=== PATIENT | female | born 1995 | race Caucasian/White ===

== ENCOUNTER 2017-01-02 16:50 | Emergency (ER) | END 2017-01-02 21:03 | disposition home or self-care (01) | DX: J02.9 Acute pharyngitis, unspecified (principal); J45.909 Unspecified asthma, uncomplicated; R51 Headache; R11.2 Nausea with vomiting, unspecified; R19.7 Diarrhea, unspecified | CPT/HCPCS: 81003; 87880; Z7502; Z7610 ==